=== PATIENT | female | born 1950 | race Caucasian/White ===

== ENCOUNTER 2017-11-18 10:11 | Day surgery (SDC) | payer OTHER ==
[~2017-11-18] VITALS: Ht 158.8 cm; Wt 79.0 kg
[~2017-11-18 10:11] MED LIST: BIOTIN 5000MCG PO; BUSPAR15 MG PO; CITALOPRAM HBR40 MG PO; CO Q-10300 MG PO; CRANBERRY300 MG PO; GLUCOPHAGE500 MG PO; HYDROCHLOROTH12.5 M3 PO; IMDUR60 MG PO; JANUMET 50/11 TABLET PO; JANUVIA100 MG PO; LISINOPRIL20 MG PO; LO-DOSE ASPIRIN81 M1 PO; LOPRESSOR50 MG PO; ROSUVASTATIN CAL5 MG PO; TRULICITY1.5 MG/0.5 SC; VITAMIN D34000 UNIT PO
[2017-11-18] MEDS ORDERED: ASPIRIN325 MG PO (10:37)
== END 2017-11-18 17:05 | disposition home or self-care (01) ==
LOC: CATH 10:11
PROVIDERS: Internal Medicine Cardiovascular Disease
DX: I25.119 Atherosclerotic heart disease of native coronary artery with unspecified angina pectoris (principal); I35.0 Nonrheumatic aortic (valve) stenosis; I10 Essential (primary) hypertension; E11.9 Type 2 diabetes mellitus without complications; E78.5 Hyperlipidemia, unspecified; F41.9 Anxiety disorder, unspecified; E66.9 Obesity, unspecified; Z68.33 Body mass index [BMI] 33.0-33.9, adult; Z79.82 Long term (current) use of aspirin; Z79.84 Long term (current) use of oral hypoglycemic drugs
CPT/HCPCS: 82948; 93005; C1769; C1887; J1644; J2250; J3010